=== PATIENT | male | born 1985 | race Caucasian/White ===

== ENCOUNTER 2016-10-21 16:49 | Observation (INO) | payer OTHER ==
[2016-10-21] MEDS ORDERED: ceFAZolin 1 GM in Premix Bag 1 BAG IV ONE ×2 (17:05→19:07)
--- NOTE | 2016-10-21 17:19 | EDM.PDOC ---
ED HPI GENERAL MEDICAL PROBLEM - General Chief Complaint: Lower Extremity Injury/Pain Stated Complaint: PT HURT RT LEG AT WORK Time Seen by Provider: 10/21/16 16:55 Source of Information: Reports: Patient History Limitations: Reports: No Limitations - History of Present Illness INITIAL COMMENTS - FREE TEXT/NARRATIVE: History of present illness: [] Patient was on the job and hit with a metal pipe around 3:30 this afternoon. He was seen at a medical clinic and diagnosed with an open tibia fracture. Dr. Winston called ER asking to evaluate this patient prior to her consultation. He arrives with his insurance follow up representative in a splint and x-rays on CD. Patient received a tetanus update while he was at the clinic. Received any other medications. Review of systems: As per history of present illness and below otherwise all systems reviewed and negative. Past medical history: As per history of present illness and as reviewed below otherwise noncontributory. Surgical history: As per history of present illness and as reviewed below otherwise noncontributory. Social history: No reported history of drug or alcohol abuse. Family history: As per history of present illness and as reviewed below otherwise noncontributory. Physical exam: General: Well developed, well nourished in NAD HEENT: Atraumatic, normocephalic, pupils reactive, negative for conjunctival pallor or scleral icterus, mucous membranes moist, throat clear, neck supple, nontender, trachea midline. Lungs: Clear to auscultation, breath sounds equal bilaterally, chest nontender. Heart: S1S2, regular, negative for clicks, rubs, or JVD. Abdomen: Soft, nondistended, nontender. Negative for masses or hepatosplenomegaly. Negative for costovertebral tenderness. Pelvis: Stable nontender. Genitourinary: Deferred. Rectal: Deferred. Extremities: Right lower extremity with 2 cm laceration anteromedial mid leg, negative for cords or calf pain. Neurovascular unremarkable. Neuro: Awake, alert, oriented. Cranial nerves II through XII unremarkable. Cerebellum unremarkable. Motor and sensory unremarkable throughout. Exam nonfocal. Diagnostics: []x-ray showing a right nondisplaced midshaft tibial fracture Therapeutics: []Ancef and pain meds given in the ED Impression: []open tib fracture right Plan: []Dr. Winston consulted and will be taking this patient to surgery and casting patient. Definitive disposition and diagnosis as appropriate pending reevaluation and review of above. Right Lower Leg Pain Score (Numeric/FACES): 10 - Related Data Allergies Allergy/AdvReac Type Severity Reaction Status Date / Time No Known Allergies Allergy Verified 10/21/16 17:14 Home Meds: Home Meds . [No Known Home Meds] 10/21/16 [History] Review of Systems - Review of Systems Review Of Systems: See Below (See history of present illness) ED EXAM, GENERAL - Physical Exam Exam: See Below (See history of present illness) Course - Vital Signs Last Recorded V/S: Last Vital Signs Temp 36.8 C 10/21/16 18:03 Pulse 77 10/21/16 18:03 Resp 18 10/21/16 18:03 BP 127/84 10/21/16 18:03 Pulse Ox 97 10/21/16 18:03 - Orders/Labs/Meds Orders: Active Orders 24 hr Category Date Time Status Patient Status [ADT] Stat ADT 10/21/16 18:16 Active NPO Now [Nothing per Oral Now Diet] [DIET] Diet 10/21/16 Breakfast Active Tibia Fibula Rt [CR] Stat Exams 10/21/16 17:08 Taken TYPE AND SCREEN [BBK] Stat Lab 10/21/16 18:00 Received HYDROmorphone [Dilaudid] Med 10/21/16 17:51 Active 0.5 mg IVPUSH Q1H PRN Medication Orders Hydromorphone HCl (Dilaudid) 0.5 mg IVPUSH Q1H PRN PRN Reason: Pain Last Admin: 10/21/16 18:05 Dose: 0.5 mg Labs: Laboratory Tests 10/21/16 10/21/16 10/21/16 Range/Units 17:10 17:10 17:10 WBC 9.49 (4.0-11.0) K/uL RBC 4.86 (4.50-5.90) M/uL Hgb 15.4 (13.0-17.0) g/dL Hct 42.6 (38.0-50.0) % MCV 87.7 (80.0-98.0) fL MCH 31.7 (27.0-32.0) pg MCHC 36.2 (31.0-37.0) g/dL RDW Std Deviation 39.1 (28.0-62.0) fl RDW Coeff of Maria Alejandra 12 (11.0-15.0) % Plt Count 162 (150-400) K/uL MPV 11.20 (7.40-12.00) fL Neut % (Auto) 75.9 (48.0-80.0) % Lymph % (Auto) 16.3 (16.0-40.0) % [place] % (Auto) 5.9 (0.0-15.0) % Eos % (Auto) 1.6 (0.0-7.0) % Baso % (Auto) 0.3 (0.0-1.5) % Neut # (Auto) 7.2 H (1.4-5.7) K/uL Lymph # (Auto) 1.6 (0.6-2.4) K/uL [place] # (Auto) 0.6 (0.0-0.8) K/uL Eos # (Auto) 0.2 (0.0-0.7) K/uL Baso # (Auto) 0.0 (0.0-0.1) K/uL Nucleated RBC % 0.0 /100WBC Nucleated RBCs # 0 K/uL INR 1.00 (0.86-1.11) APTT 22.7 (18.6-31.3) SEC Sodium 141 (136-146) mmol/L Potassium 4.2 (3.5-5.1) mmol/L Chloride 110 (98-110) mmol/L Carbon Dioxide 21 (21-31) mmol/L BUN 28 H (6.0-23.0) mg/dL Creatinine 1.1 (0.6-1.5) mg/dL Est Cr Clr Drug Dosing TNP Estimated GFR (MDRD) > 60.0 ml/min Glucose 92 (60-110) mg/dL Calcium 9.3 (8.8-10.8) mg/dL Total Bilirubin 0.4 (0.1-1.5) mg/dL AST 22 (5-40) IU/L ALT 24 (8-54) IU/L Alkaline Phosphatase 61 (40-150) Total Protein 7.8 (6.0-8.0) g/dL Albumin 4.7 (3.5-5.0) g/dL Globulin 3.1 (2.0-3.5) g/dL Albumin/Globulin Ratio 1.5 (1.3-2.8) Meds: Medications Generic Name Dose Route Start Last Admin Trade Name Day PRN Reason Stop Dose Admin Hydromorphone HCl 0.5 mg 10/21/16 17:51 10/21/16 18:05 Dilaudid IVPUSH 0.5 mg Q1H PRN Administration Pain Discontinued Medications Generic Name Dose Route Start Last Admin Trade Name Day PRN Reason Stop Dose Admin Cefazolin Sodium/Dextrose 1 gm 50 mls @ 100 mls/hr 10/21/16 17:05 10/21/16 17 :24 / Premix IV 10/21/16 17:34 100 mls/hr ONETIME ONE Administration Cefazolin Sodium/Dextrose Confirm 10/21/16 17:21 10/21/16 17:27 Ancef Administered 10/21/16 17:22 Not Given Dose 50 mls @ as directed .ROUTE .STK-MED ONE Ondansetron HCl 4 mg 10/21/16 17:51 10/21/16 18:05 Zofran IVPUSH 10/21/16 17:52 4 mg ONETIME ONE Administration Departure - Departure Time of Disposition: 18:02 Disposition: Admitted As Inpatient 65 Condition: good Clinical Impression: Open tibial fracture Qualifiers: Encounter type: initial encounter Tibia location: shaft Open fracture type: open type I or II Fracture morphology: transverse Fracture alignment: nondisplaced Laterality: right Qualified Code(s): S82.224B - Nondisplaced transverse fracture of shaft of right tibia, initial encounter for open fracture type I or II - Discharge Information Referrals: PCP,None [Primary Care Provider] - Forms: ED Department Discharge - My Orders Last 24 Hours: My Active Orders 10/21/16 17:08 Tibia Fibula Rt [CR] Stat 10/21/16 17:51 HYDROmorphone [Dilaudid] 0.5 mg IVPUSH Q1H PRN 10/21/16 18:00 TYPE AND SCREEN [BBK] Stat 10/21/16 18:16 Patient Status [ADT] Stat 10/21/16 Breakfast NPO Now [Nothing per Oral Now Diet] [DIET] - Assessment/Plan Last 24 Hours: My Active Orders 10/21/16 17:08 Tibia Fibula Rt [CR] Stat 10/21/16 17:51 HYDROmorphone [Dilaudid] 0.5 mg IVPUSH Q1H PRN 10/21/16 18:00 TYPE AND SCREEN [BBK] Stat 10/21/16 18:16 Patient Status [ADT] Stat 10/21/16 Breakfast NPO Now [Nothing per Oral Now Diet] [DIET]
[2016-10-21] MEDS ORDERED: HYDROmorphone 1 MG/ML Syringe IVPUSH PRN ×2 (17:51→18:51)
[2016-10-21] MEDS ORDERED: Ondansetron 4 MG/2 ML SDV IVPUSH ONE ×2 (17:51→18:48)
[2016-10-21 18:07] LABS: CHLORIDE,CL 110 mmol/L (98-110); SODIUM,NA 141 mmol/L (136-146)
--- NOTE | 2016-10-21 18:33 | PCM.HP ---
H&P History of Present Illness - General Date of Service: 10/21/16 Admit Problem/Dx: Admission Diagnosis/Problem Admission Diagnosis/Problem Fracture of shaft of tibia Source of Information: Patient History Limitations: Reports: No Limitations - History of Present Illness Onset of Symptoms: Reports: Today Symptom Onset Date: 10/21/16 Symptom Onset Time: 15:00 Duration of Symptoms: Reports: Hour(s):, Constant Location: Reports: Lower Extremity, Right Front/Back Full Body Diagram: 1 - 2cm laceration, serosanguinous drainage, no active bleeding noted Quality: Reports: Sharp, Throbbing Severity: Moderate Improves with: Reports: Immobilization, Rest Worsens with: Reports: Movement Context: Reports: Trauma (Patient states heavy pipe was dropped directly on his right tibia at ~1500. c/o immediate pain. Evaluated by Dr. Medrano. Referred to ER for definitive evaluation.) Associated Symptoms: Reports: No Other Symptoms. Denies: Chest Pain, Shortness of Breath Other HPI/Comments: No previous h/o R knee, low leg, or ankle pain. Denies paralysis, paresthesias. Right Lower Leg Pain Score (Numeric/FACES): 10 - Related Data Allergies/Adverse Reactions: Allergies Allergy/AdvReac Type Severity Reaction Status Date / Time No Known Allergies Allergy Verified 10/21/16 17:14 Home Medications: Home Meds . [No Known Home Meds] 10/21/16 [History] Past Medical History - Past Health History Medical/Surgical History: Denies Medical/Surgical History - Infectious Disease History Infectious Disease History: Reports: Chicken Pox Social & Family History - Family History Family Medical History: Noncontributory - Tobacco Use Smoking Status *Q: Never Smoker - Caffeine Use Caffeine Use: Reports: None - Alcohol Use Alcohol Use History: Yes Alcohol Use Frequency: Socially - Recreational Drug Use Recreational Drug Use: No H&P Review of Systems - Review of Systems: Review Of Systems: See Below General: Reports: No Symptoms HEENT: Reports: No Symptoms Pulmonary: Reports: No Symptoms Cardiovascular: Reports: No Symptoms Gastrointestinal: Reports: No Symptoms Genitourinary: Reports: No Symptoms Musculoskeletal: Reports: Leg Pain Skin: Reports: Wound Psychiatric: Reports: No Symptoms Neurological: Reports: No Symptoms Hematologic/Lymphatic: Reports: No Symptoms Immunologic: Reports: No Symptoms Exam - Exam Exam: See Below - Vital Signs Vital Signs: Last Vital Signs Temp 98.2 F 10/21/16 18:03 Pulse 77 10/21/16 18:03 Resp 18 10/21/16 18:03 BP 127/84 10/21/16 18:03 Pulse Ox 97 10/21/16 18:03 Weight: 101.2 kg - Exam General: Alert, Oriented, 4 HEENT: Conjunctiva Clear, Hearing Intact, Nares Patent Neck: Supple, Trachea Midline, 2 Lungs: Normal Respiratory Effort Cardiovascular: Regular Rhythm Abdomen: Soft Peripheral Pulses: 2+: Posterior Tibial (L), Posterior Tibial (R), Dorsalis Pedis (L), Dorsalis Pedis (R) Skin: Warm, Dry, Wound Skin Alteration Location (Drawings Not To Scale): 1 - 2 cm laceration Neuro Extensive - Mental Status: Alert, Oriented x3, Normal Mood/Affect, Normal Cognition Psychiatric: Alert, Normal Affect, Normal Mood Physical Exam Comments:: Exam of RLE: laceration over anterior tibia, midshaft, as previously described. No pain with gentle log rolling of hip. No TTP around knee, ankle, foot. Calf compartments soft. AT/EHL/gastroc 5/5. Sensation intact. DP 2+. - Patient Data Lab Results last 24 hrs: Laboratory Results - last 24 hr 10/21/16 10/21/16 10/21/16 Range/Units 17:10 17:10 17:10 WBC 9.49 (4.0-11.0) K/uL RBC 4.86 (4.50-5.90) M/uL Hgb 15.4 (13.0-17.0) g/dL Hct 42.6 (38.0-50.0) % MCV 87.7 (80.0-98.0) fL MCH 31.7 (27.0-32.0) pg MCHC 36.2 (31.0-37.0) g/dL RDW Std Deviation 39.1 (28.0-62.0) fl RDW Coeff of Maria Alejandra 12 (11.0-15.0) % Plt Count 162 (150-400) K/uL MPV 11.20 (7.40-12.00) fL Neut % (Auto) 75.9 (48.0-80.0) % Lymph % (Auto) 16.3 (16.0-40.0) % [place] % (Auto) 5.9 (0.0-15.0) % Eos % (Auto) 1.6 (0.0-7.0) % Baso % (Auto) 0.3 (0.0-1.5) % Neut # (Auto) 7.2 H (1.4-5.7) K/uL Lymph # (Auto) 1.6 (0.6-2.4) K/uL [place] # (Auto) 0.6 (0.0-0.8) K/uL Eos # (Auto) 0.2 (0.0-0.7) K/uL Baso # (Auto) 0.0 (0.0-0.1) K/uL Nucleated RBC % 0.0 /100WBC Nucleated RBCs # 0 K/uL INR 1.00 (0.86-1.11) APTT 22.7 (18.6-31.3) SEC Sodium 141 (136-146) mmol/L Potassium 4.2 (3.5-5.1) mmol/L Chloride 110 (98-110) mmol/L Carbon Dioxide 21 (21-31) mmol/L BUN 28 H (6.0-23.0) mg/dL Creatinine 1.1 (0.6-1.5) mg/dL Est Cr Clr Drug Dosing TNP Estimated GFR (MDRD) > 60.0 ml/min Glucose 92 (60-110) mg/dL Calcium 9.3 (8.8-10.8) mg/dL Total Bilirubin 0.4 (0.1-1.5) mg/dL AST 22 (5-40) IU/L ALT 24 (8-54) IU/L Alkaline Phosphatase 61 (40-150) Total Protein 7.8 (6.0-8.0) g/dL Albumin 4.7 (3.5-5.0) g/dL Globulin 3.1 (2.0-3.5) g/dL Albumin/Globulin Ratio 1.5 (1.3-2.8) Result Diagrams: 10/21/16 17:10 10/21/16 17:10 Imaging Impressions last 24 hrs: XR R tibia shows nondisplaced midshaft tibia fracture. *Q Meaningful Use (ADM) - VTE *Q VTE Criteria *Q: - Stroke *Q Stroke Criteria *Q: - AMI *Q AMI Criteria *Q: - Problem List (1) Open tibial fracture SNOMED Code(s): 150442206 ICD Code: S82.209B - UNSP FX SHAFT OF UNSP TIBIA, INIT FOR OPN FX TYPE I/2 Status: Acute Current Visit: Yes Qualifiers: Encounter type: initial encounter Tibia location: shaft Open fracture type: open type I or II Fracture morphology: transverse Fracture alignment: nondisplaced Laterality: right Qualified Code(s): S82.224B - Nondisplaced transverse fracture of shaft of right tibia, initial encounter for open fracture type I or II Problem List Initiated/Reviewed/Updated: Yes Orders Last 24hrs: Active Orders 24 hr Category Date Time Status Patient Status [ADT] Stat ADT 10/21/16 18:16 Active NPO Now [Nothing per Oral Now Diet] [DIET] Diet 10/21/16 Breakfast Active Tibia Fibula Rt [CR] Stat Exams 10/21/16 17:08 Taken TYPE AND SCREEN [BBK] Stat Lab 10/21/16 18:00 Received HYDROmorphone [Dilaudid] Med 10/21/16 17:51 Active 0.5 mg IVPUSH Q1H PRN Medication Orders Hydromorphone HCl (Dilaudid) 0.5 mg IVPUSH Q1H PRN PRN Reason: Pain Last Admin: 10/21/16 18:05 Dose: 0.5 mg Assessment/Plan Comment:: 1. 1 gram Ancef given in ER--will give additional 1 gram due to body weight 2. Tetanus booster updated 3. Due to open fracture, recommend ED right tibia to bone. If wound is clean, will plan on closing tonight and placing LLC with window. Risks of procedure d/ w patient which includes, but not limited to, infection, N/V injury, nonunion, malunion, loss of reduction of fracture requiring further surgical intervention , blood clots, knee/ankle stiffness, and anesthetic complications. Patient seems to accept risks and would like to proceed. Will plan on doing tonight. 4. Will admit for IV antibiotics post op x 24 H. 5. plan for PT tomorrow--KHURRAM ESPARZA
[2016-10-21] MEDS ORDERED: fentaNYL 250 MCG/5 ML SDV ONE (18:39)
[2016-10-21] MEDS ORDERED: Propofol 200 MG/20 ML SDV ONE (18:39)
[2016-10-21] MEDS ORDERED: Midazolam 1 MG/ML 2 ML SDV ONE (18:39)
[2016-10-21] MEDS ORDERED: Metoclopramide 10 MG/2 ML SDV ONE ×2 (18:40)
[2016-10-21] MEDS ORDERED: HYDROmorphone 2 MG/ML Syringe IVPUSH PRN (18:48)
[2016-10-21] MEDS ORDERED: fentaNYL 100 MCG/2 ML SDV IVPUSH PRN (18:48)
[2016-10-21] MEDS ORDERED: Meperidine PF 25 MG/ML Syringe IM ONE (18:48)
--- NOTE | 2016-10-21 18:48 | PCM.PREANE ---
Preanesthetic Assessment - Procedure Proposed Procedure: i and d of right tibia - Anesthesia/Transfusion/Family Hx Anesthesia History: No Prior Anesthesia Family History of Anesthesia Reaction: No Transfusion History: No Prior Transfusion(s) Intubation History: Unknown - Review of Systems General: No Symptoms Pulmonary: No Symptoms, Cough Cardiovascular: No Symptoms Gastrointestinal: No symptoms Neurological: No Symptoms Other: Reports: None - Physical Assessment NPO Status Date: 10/21/16 NPO Status Time: 13:00 Pulse: 88 O2 Sat by Pulse Oximetry: 97 Respiratory Rate: 18 Vital Signs: Last Vital Signs Temp 36.8 C 10/21/16 18:03 Pulse 77 10/21/16 18:03 Resp 18 10/21/16 18:03 BP 127/84 10/21/16 18:03 Pulse Ox 97 10/21/16 18:03 Height: 1.8 m Weight: 101.2 kg ASA Class: 1E Mental Status: Alert & Oriented x3 Airway Class: Mallampati = 1 Dentition: Reports: Normal Dentition Thyro-Mental Finger Breadths: 3 Mouth Opening Finger Breadths: 3 ROM/Head Extension: Full Lungs: Clear to auscultation, Normal respiratory effort Cardiovascular: Regular Rate, Regular Rhythm - Lab Values: Laboratory Last Values WBC 9.49 K/uL (4.0-11.0) 10/21/16 17:10 RBC 4.86 M/uL (4.50-5.90) 10/21/16 17:10 Hgb 15.4 g/dL (13.0-17.0) 10/21/16 17:10 Hct 42.6 % (38.0-50.0) 10/21/16 17:10 MCV 87.7 fL (80.0-98.0) 10/21/16 17:10 MCH 31.7 pg (27.0-32.0) 10/21/16 17:10 MCHC 36.2 g/dL (31.0-37.0) 10/21/16 17:10 RDW Std Deviation 39.1 fl (28.0-62.0) 10/21/16 17:10 RDW Coeff of Maria Alejandra 12 % (11.0-15.0) 10/21/16 17:10 Plt Count 162 K/uL (150-400) 10/21/16 17:10 MPV 11.20 fL (7.40-12.00) 10/21/16 17:10 Neut % (Auto) 75.9 % (48.0-80.0) 10/21/16 17:10 Lymph % (Auto) 16.3 % (16.0-40.0) 10/21/16 17:10 [place] % (Auto) 5.9 % (0.0-15.0) 10/21/16 17:10 Eos % (Auto) 1.6 % (0.0-7.0) 10/21/16 17:10 Baso % (Auto) 0.3 % (0.0-1.5) 10/21/16 17:10 Neut # (Auto) 7.2 K/uL (1.4-5.7) H 10/21/16 17:10 Lymph # (Auto) 1.6 K/uL (0.6-2.4) 10/21/16 17:10 [place] # (Auto) 0.6 K/uL (0.0-0.8) 10/21/16 17:10 Eos # (Auto) 0.2 K/uL (0.0-0.7) 10/21/16 17:10 Baso # (Auto) 0.0 K/uL (0.0-0.1) 10/21/16 17:10 Nucleated RBC % 0.0 /100WBC 10/21/16 17:10 Nucleated RBCs # 0 K/uL 10/21/16 17:10 INR 1.00 (0.86-1.11) 10/21/16 17:10 APTT 22.7 SEC (18.6-31.3) 10/21/16 17:10 Sodium 141 mmol/L (136-146) 10/21/16 17:10 Potassium 4.2 mmol/L (3.5-5.1) 10/21/16 17:10 Chloride 110 mmol/L (98-110) 10/21/16 17:10 Carbon Dioxide 21 mmol/L (21-31) 10/21/16 17:10 BUN 28 mg/dL (6.0-23.0) H 10/21/16 17:10 Creatinine 1.1 mg/dL (0.6-1.5) 10/21/16 17:10 Est Cr Clr Drug Dosing TNP 10/21/16 17:10 Estimated GFR (MDRD) > 60.0 ml/min 10/21/16 17:10 Glucose 92 mg/dL (60-110) 10/21/16 17:10 Calcium 9.3 mg/dL (8.8-10.8) 10/21/16 17:10 Total Bilirubin 0.4 mg/dL (0.1-1.5) 10/21/16 17:10 AST 22 IU/L (5-40) 10/21/16 17:10 ALT 24 IU/L (8-54) 10/21/16 17:10 Alkaline Phosphatase 61 (40-150) 10/21/16 17:10 Total Protein 7.8 g/dL (6.0-8.0) 10/21/16 17:10 Albumin 4.7 g/dL (3.5-5.0) 10/21/16 17:10 Globulin 3.1 g/dL (2.0-3.5) 10/21/16 17:10 Albumin/Globulin Ratio 1.5 (1.3-2.8) 10/21/16 17:10 - Allergies Allergies/Adverse Reactions: Allergies Allergy/AdvReac Type Severity Reaction Status Date / Time No Known Allergies Allergy Verified 10/21/16 17:14 - Blood Blood Available: No Product(s) Available: None - Anesthesia Plan Pre-Op Medication Ordered: None - Acknowledgements Anesthesia Type Planned: General Anesthesia Pt an Appropriate Candidate for the Planned Anesthesia: Yes Alternatives and Risks of Anesthesia Discussed w Pt/Guardian: Yes Pt/Guardian Understands and Agrees with Anesthesia Plan: Yes PreAnesthesia Questionnaire - Past Health History Medical/Surgical History: Denies Medical/Surgical History - Infectious Disease History Infectious Disease History: Reports: Chicken Pox - SUBSTANCE USE Smoking Status *Q: Never Smoker Recreational Drug Use History: No - HOME MEDS Home Medications: Home Meds . [No Known Home Meds] 10/21/16 [History] - CURRENT (IN HOUSE) MEDS Current Meds: Current Medications Hydromorphone HCl (Dilaudid) 0.5 mg IVPUSH Q1H PRN PRN Reason: Pain Last Admin: 10/21/16 18:05 Dose: 0.5 mg Discontinued Medications Fentanyl (Sublimaze) Confirm Administered Dose 250 mcg .ROUTE .STK-MED ONE Stop: 10/21/16 18:40 Cefazolin Sodium/Dextrose 1 gm (/ Premix) 50 mls @ 100 mls/hr IV ONETIME ONE Stop: 10/21/16 17:34 Last Admin: 10/21/16 17:24 Dose: 100 mls/hr Cefazolin Sodium/Dextrose (Ancef) Confirm Administered Dose 50 mls @ as directed .ROUTE .STK-MED ONE Stop: 10/21/16 17:22 Last Admin: 10/21/16 17:27 Dose: Not Given Metoclopramide HCl (Reglan) Confirm Administered Dose 10 mg .ROUTE .STK-MED ONE Stop: 10/21/16 18:41 Metoclopramide HCl (Reglan) Confirm Administered Dose 10 mg .ROUTE .STK-MED ONE Stop: 10/21/16 18:41 Midazolam HCl (Versed 1 Mg/Ml) Confirm Administered Dose 2 mg .ROUTE .STK-MED ONE Stop: 10/21/16 18:40 Ondansetron HCl (Zofran) 4 mg IVPUSH ONETIME ONE Stop: 10/21/16 17:52 Last Admin: 10/21/16 18:05 Dose: 4 mg Propofol (Diprivan 20 Ml) Confirm Administered Dose 200 mg .ROUTE .STK-MED ONE Stop: 10/21/16 18:40
[2016-10-21] MEDS ORDERED: Ondansetron 4 MG/2 ML SDV IV PRN (18:51)
[2016-10-21] MEDS ORDERED: Aluminum Hydroxide/Magnesium Hydroxide/Simethicone Susp 30 ML Cup PO PRN (18:51)
--- NOTE | 2016-10-21 19:00 | PCM.OPNOTE ---
- General Post-Op/Procedure Note Date of Surgery/Procedure: 10/21/16 Operative Procedure(s): 1. Closed treatment of right tibial shaft fracture without manipulation. 2. ED right open tibia fracture to bone Post-Op Diagnosis: Open right tibia shaft fracture Anesthesia Technique: General ET tube Primary Surgeon: Yulissa Winston Textile Converter: Lee Chamorro in mLs: 5 Condition: Good Free Text/Narrative:: #[id number]
[2016-10-21] MEDS ORDERED: Lidocaine 1% 50 ML MDV ONE (19:02)
[2016-10-21] MEDS ORDERED: Bupivacaine 0.25% 10 ML SDV ONE (19:02)
[2016-10-21] MEDS ORDERED: ceFAZolin 1 GM Vial ONE (19:21)
[2016-10-21] MEDS ORDERED: Ketorolac 30 MG/ML SDV ONE (19:22)
[2016-10-21] MEDS ORDERED: Ondansetron 4 MG/2 ML SDV ONE (19:22)
[2016-10-21] MEDS ORDERED: HYDROmorphone 2 MG/ML Syringe ONE (19:38)
[2016-10-21] MEDS ORDERED: fentaNYL 100 MCG/2 ML SDV ONE (19:50)
[2016-10-21] MEDS: Ketorolac 30 MG/ML SDV IVPUSH SCH (21:24)
[2016-10-21] MEDS: Lactated Ringers 1,000 ML IV SCH (21:30)
--- NOTE | 2016-10-21 21:33 | PCM.POSTAN ---
POST ANESTHESIA ASSESSMENT - MENTAL STATUS Mental Status: alert, oriented - VITAL SIGNS Pulse Rate: 88 SaO2: 98 Resp Rate: 16 Blood Pressure: 132/67 Temperature: 97.6 C - RESPIRATORY Respiratory Status: respiratory rate WNL, airway patent, O2 saturation stable - CARDIOVASCULAR CV Status: pulse rate WNL, blood pressure stable - GASTROINTESTINAL GI Status: no symptoms - POST OP HYDRATION Hydration Status: adequate & stable
[2016-10-21] MEDS: Docusate Sodium 100 MG Cap PO SCH (21:35)
[2016-10-21] MEDS: Acetaminophen/HYDROcodone 325-10 MG Tab PO PRN (21:35)
--- NOTE | 2016-10-22 00:47 | OR ---
SURGEON: Yulissa Winston MD DATE OF PROCEDURE: 10/21/2016 PREOPERATIVE DIAGNOSES: Grade 2 open right tibia shaft fracture. POSTOPERATIVE DIAGNOSIS: Grade 2 open right tibia shaft fracture. PROCEDURE: 1. Closed treatment of right tibial shaft fracture without manipulation. 2. Excisional debridement of right open tibia fracture to bone. PEELER OPERATOR: Lee Chamorro PA-C. ANESTHESIA: General. ESTIMATED BLOOD LOSS: 5 mL. TOURNIQUET TIME: 0 minutes. COMPLICATIONS: None. DVT PROPHYLAXIS: Not indicated. IMPLANTS USED: None. BRIEF HISTORY: Callum is a 31-year-old male, who injured his right lower extremity earlier today when a heavy pipe dropped on the anterior aspect of his right leg. He complained of immediate pain. He was seen initially at an occupational health facility. An x-ray taken there showed a fracture of the tibia. He was subsequently referred to our hospital for further evaluation in the emergency department. X-rays were obtained, which showed a nondisplaced fracture of the right midshaft tibia. He was found to have an open wound overlying the fracture site. At that time, I recommended surgical treatment. The risks and goals of procedure were discussed with the patient and were documented preoperatively. He agreed to proceed. DESCRIPTION OF PROCEDURE: The patient was properly identified and brought to the operating room. He was transferred from the OR cart to the operating table. He was in a supine position. General anesthesia was administered. After adequate anesthesia was obtained, the right lower extremity was prepped in standard fashion using Betadine solution. It was then sterilely draped. A time-out was performed to ensure correct site and procedure. Preoperative antibiotics were given. The surgical site had been marked preoperatively. A 15 blade scalpel used to extend the 2 cm skin laceration. The subcutaneous tissues were inspected. I was able to palpate the tibia fracture. It appeared stable. The surrounding tissues appeared clean. 9 L of normal saline were irrigated through the wound using a Pulsavac entrance guard. The edges of the wound were freshened at the completion. 2-0 Monocryl was used to close the subcutaneous tissues and the skin was closed with 3-0 nylon. Compartments were soft at the completion of the procedure. 0.5% Marcaine was injected along the incision site. Xeroform gauze was placed over the wound and a bulky dressing was applied. A long-arm cast was then applied. An x-ray obtained after placement of the cast showed no change in alignment of the fracture. It remained completely nondisplaced in an anatomic position. The cast was then bivalved. It was overwrapped with an Delroy wrap. He was awakened from his anesthetic and transferred back to the operating room cart. He was brought to recovery room in stable condition. All needle and sponge counts were correct. The patient will be admitted postoperatively for neurovascular examination and pain control along with 24 hours of IV antibiotics. We will plan on having him see physical therapy tomorrow for assistance with gait training. ALFRED / CEFERINO /[id number] MTDJanet
[2016-10-22] MEDS ORDERED: ceFAZolin 2 GM in Premix Bag 1 BAG IV SCH (02:00)
[2016-10-22] MEDS: Ketorolac 30 MG/ML SDV IVPUSH SCH ×3 (02:40→08:16)
[2016-10-22] MEDS: ceFAZolin 2 GM in Premix Bag 1 BAG IV SCH ×2 (02:58→09:14)
[2016-10-22] MEDS: Lactated Ringers 1,000 ML IV SCH (05:48)
[2016-10-22] MEDS: Acetaminophen/HYDROcodone 325-10 MG Tab PO PRN ×2 (07:11→12:07)
--- NOTE | 2016-10-22 07:17 | PCM48HPAN ---
Post Anesthesia Note - EVALUATION WITHIN 48HRS OF ANESTHETIC Vital Signs in Normal Range: Yes Patient Participated in Evaluation: Yes Respiratory Function Stable: Yes Airway Patent: Yes Cardiovascular Function Stable: Yes Hydration Status Stable: Yes Pain Control Satisfactory: Yes (controlled with meds) Nausea and Vomiting Control Satisfactory: Yes Mental Status Recovered: Yes
--- NOTE | 2016-10-22 08:14 | PCM.SURGPN ---
[id number] Surgery/Procedure: 10/21/16 POD#: 1 Functional Status: Reports: pain controlled, tolerating diet, urinating - Review of Systems General: Reports: No Symptoms Pulmonary: Reports: no symptoms, hemoptysis Gastrointestinal: Reports: No symptoms Genitourinary: Reports: no symptoms Musculoskeletal: Reports: leg pain, other (Leg swelling) Neurological: Reports: No Symptoms Psychiatric: Reports: no symptoms - Patient Data Vitals - most recent: Last Vital Signs Temp 36.3 C 10/22/16 07:44 Pulse 59 L 10/22/16 07:44 Resp 20 10/22/16 07:44 BP 107/63 10/22/16 07:44 Pulse Ox 97 10/22/16 07:44 Weight - most recent: 104.5 kg I&O - last 24 hours: Intake & Output 10/21/16 10/22/16 10/22/16 22:59 06:59 14:59 Intake Total 850 2370 Output Total 850 Balance 850 1520 Med Orders - Current: Current Medications Hydrocodone Bitart/Acetaminophen ([place] 325-10 Mg) 1 - 2 tab PO Q4H PRN PRN Reason: Pain Last Admin: 10/22/16 07:11 Dose: 2 tab Al Hydroxide/Mg Hydroxide (Mag-Al Plus) 30 ml PO Q4H PRN PRN Reason: Abdominal Pain Docusate Sodium (Colace) 100 mg PO BID [facility] Last Admin: 10/21/16 21:35 Dose: 100 mg Fentanyl (Sublimaze) 50 mcg IVPUSH Q5M PRN PRN Reason: Pain (severe 7-10) Stop: 10/22/16 18:49 Hydromorphone HCl (Dilaudid) 0.25 mg IVPUSH Q10M PRN PRN Reason: Pain (severe 7-10) Stop: 10/22/16 18:49 Hydromorphone HCl (Dilaudid) 0.5 - 1 mg IVPUSH Q3H PRN PRN Reason: Pain Last Admin: 10/22/16 00:01 Dose: 1 mg Lactated Ringer's (Ringers, Lactated) 1,000 mls @ 125 mls/hr IV ASDIRECTED [facility] Last Admin: 10/22/16 05:48 Dose: 125 mls/hr Cefazolin Sodium/Dextrose 2 gm (/ Premix) 50 mls @ 100 mls/hr IV Q8H [facility] Stop: 10/22/16 10:29 Last Admin: 10/22/16 02:58 Dose: 100 mls/hr Ketorolac Tromethamine (Toradol) 30 mg IVPUSH Q6H [facility] Last Admin: 10/22/16 02:58 Dose: Not Given Ondansetron HCl (Zofran) 4 mg IV Q8HR PRN PRN Reason: NAUSEA/VOMITING Discontinued Medications Bupivacaine HCl (Sensorcaine-Mpf 0.25%) Confirm Administered Dose 10 ml .ROUTE .STK-MED ONE Stop: 10/21/16 19:03 Cefazolin Sodium (Ancef) Confirm Administered Dose 1 gm .ROUTE .STK-MED ONE Stop: 10/21/16 19:22 Fentanyl (Sublimaze) Confirm Administered Dose 250 mcg .ROUTE .STK-MED ONE Stop: 10/21/16 18:40 Fentanyl (Sublimaze) Confirm Administered Dose 100 mcg .ROUTE .STK-MED ONE Stop: 10/21/16 19:51 Hydromorphone HCl (Dilaudid) 0.5 mg IVPUSH Q1H PRN PRN Reason: Pain Last Admin: 10/21/16 18:05 Dose: 0.5 mg Hydromorphone HCl (Dilaudid) Confirm Administered Dose 2 mg .ROUTE .STK-MED ONE Stop: 10/21/16 19:39 Cefazolin Sodium/Dextrose 1 gm (/ Premix) 50 mls @ 100 mls/hr IV ONETIME ONE Stop: 10/21/16 17:34 Last Admin: 10/21/16 17:24 Dose: 100 mls/hr Cefazolin Sodium/Dextrose (Ancef) Confirm Administered Dose 50 mls @ as directed .ROUTE .STK-MED ONE Stop: 10/21/16 17:22 Last Admin: 10/21/16 17:27 Dose: Not Given Cefazolin Sodium/Dextrose 1 gm (/ Premix) 50 mls @ 100 mls/hr IV ONETIME ONE Stop: 10/21/16 19:36 Last Admin: 10/22/16 07:29 Dose: Not Given Ketorolac Tromethamine (Toradol) 30 mg IVPUSH Q6H [facility] Last Admin: 10/22/16 02:40 Dose: 30 mg Ketorolac Tromethamine (Toradol) Confirm Administered Dose 30 mg .ROUTE .STK- MED ONE Stop: 10/21/16 19:23 Lidocaine HCl (Xylocaine 1%) Confirm Administered Dose 50 ml .ROUTE .STK-MED ONE Stop: 10/21/16 19:03 Meperidine HCl (Demerol) 50 mg IM ONETIME ONE Stop: 10/21/16 18:49 Last Admin: 10/22/16 02:57 Dose: Not Given Metoclopramide HCl (Reglan) Confirm Administered Dose 10 mg .ROUTE .STK-MED ONE Stop: 10/21/16 18:41 Metoclopramide HCl (Reglan) Confirm Administered Dose 10 mg .ROUTE .STK-MED ONE Stop: 10/21/16 18:41 Midazolam HCl (Versed 1 Mg/Ml) Confirm Administered Dose 2 mg .ROUTE .STK-MED ONE Stop: 10/21/16 18:40 Ondansetron HCl (Zofran) 4 mg IVPUSH ONETIME ONE Stop: 10/21/16 17:52 Last Admin: 10/21/16 18:05 Dose: 4 mg Ondansetron HCl (Zofran) 4 mg IVPUSH ONETIME ONE Stop: 10/21/16 18:49 Last Admin: 10/22/16 02:59 Dose: Not Given Ondansetron HCl (Zofran) Confirm Administered Dose 4 mg .ROUTE .STK-MED ONE Stop: 10/21/16 19:23 Propofol (Diprivan 20 Ml) Confirm Administered Dose 200 mg .ROUTE .STK-MED ONE Stop: 10/21/16 18:40 - Exam Wound/Incisions: other ([facility] [employer] in place.) General: alert, oriented HEENT: Pupils equal, Pupils reactive, Other Lungs: Normal respiratory effort Cardiovascular: Regular Rate Extremities: other ([facility] [employer] in place. Sensation intact. ) Neurological: no new focal deficit Psy/Mental Status: normal affect, normal mood - Problem List Review Problem List Initiated/Reviewed/Updated: Yes - My Orders Last 24 Hours: Active Orders 24 hr Category Date Time Status Antiembolic Devices [RC] PER UNIT ROUTINE Care 10/21/16 18:50 Active Neurovascular Check [RC] Q4HR Care 10/21/16 18:47 Active Notify Provider Vital Signs [RC] ASDIRECTED Care 10/21/16 18:47 Active Oxygen Therapy Adult [Oxygen Therapy] [RC] ASDIRECTED Care 10/21/16 21:40 Active Vital Signs [RC] Q4H Care 10/21/16 18:47 Active PT Evaluation and Treatment [CONS] Routine Cons 10/22/16 09:00 Active Regular Diet [DIET] Diet 10/21/16 Dinner Active Tibia Fibula Rt [CR] Routine Exams 10/21/16 20:07 Taken Acetaminophen/HYDROcodone [[place] 325-10 MG] Med 10/21/16 18:51 Active 1 - 2 tab PO Q4H PRN Alum Hydrox/Mag Hydrox/Simeth [Mag-Al Plus] Med 10/21/16 18:51 Active 30 ml PO Q4H PRN Docusate Sodium [Colace] Med 10/21/16 21:00 Active 100 mg PO BID HYDROmorphone [Dilaudid] Med 10/21/16 18:48 Active 0.25 mg IVPUSH Q10M PRN HYDROmorphone [Dilaudid] Med 10/21/16 18:51 Active 0.5 - 1 mg IVPUSH Q3H PRN Ketorolac [Toradol] Med 10/22/16 02:00 Active 30 mg IVPUSH Q6H Lactated Ringers [Ringers, Lactated] 1,000 ml Med 10/21/16 19:00 Active IV ASDIRECTED Ondansetron [Zofran] Med 10/21/16 18:51 Active 4 mg IV Q8HR PRN ceFAZolin [Ancef] 2 gm Med 10/22/16 02:00 Active Premix Bag 1 bag IV Q8H fentaNYL [Sublimaze] Med 10/21/16 18:48 Active 50 mcg IVPUSH Q5M PRN Ice Therapy [OM.PC] Routine Oth 10/21/16 18:47 Ordered Sequential Compression Device [OM.PC] Routine Oth 10/21/16 18:46 Ordered Medication Orders Hydrocodone Bitart/Acetaminophen ([place] 325-10 Mg) 1 - 2 tab PO Q4H PRN PRN Reason: Pain Last Admin: 10/22/16 07:11 Dose: 2 tab Admin: 10/21/16 21:35 Dose: 2 tab Al Hydroxide/Mg Hydroxide (Mag-Al Plus) 30 ml PO Q4H PRN PRN Reason: Abdominal Pain Docusate Sodium (Colace) 100 mg PO BID [facility] Last Admin: 10/21/16 21:35 Dose: 100 mg Fentanyl (Sublimaze) 50 mcg IVPUSH Q5M PRN PRN Reason: Pain (severe 7-10) Stop: 10/22/16 18:49 Hydromorphone HCl (Dilaudid) 0.25 mg IVPUSH Q10M PRN PRN Reason: Pain (severe 7-10) Stop: 10/22/16 18:49 Hydromorphone HCl (Dilaudid) 0.5 - 1 mg IVPUSH Q3H PRN PRN Reason: Pain Last Admin: 10/22/16 00:01 Dose: 1 mg Lactated Ringer's (Ringers, Lactated) 1,000 mls @ 125 mls/hr IV ASDIRECTED [facility] Last Admin: 10/22/16 05:48 Dose: 125 mls/hr Infusion: 10/22/16 05:30 Dose: 125 mls/hr Admin: 10/21/16 21:30 Dose: 125 mls/hr Cefazolin Sodium/Dextrose 2 gm (/ Premix) 50 mls @ 100 mls/hr IV Q8H [facility] Stop: 10/22/16 10:29 Last Admin: 10/22/16 02:58 Dose: 100 mls/hr Ketorolac Tromethamine (Toradol) 30 mg IVPUSH Q6H [facility] Last Admin: 10/22/16 02:58 Dose: Not Given Ondansetron HCl (Zofran) 4 mg IV Q8HR PRN PRN Reason: NAUSEA/VOMITING - Assessment Assessment (Free Text/Narrative):: Patient awake in bed this AM Pain controlled Tolerating diet No complaints - Plan Plan (Free Text/Narrative):: Continue pain management PT eval and treat this AM Continue antibiotic Patient D/C home this afternoon <Yulissa Winston R - Last Filed: 10/23/16 09:27> - Patient Data Vitals - most recent: Last Vital Signs Temp 97.3 F 10/22/16 11:00 Pulse 69 10/22/16 11:00 Resp 20 10/22/16 11:00 BP 111/67 10/22/16 11:00 Pulse Ox 99 10/22/16 11:00 Med Orders - Current: Current Medications Discontinued Medications Hydrocodone Bitart/Acetaminophen ([place] 325-10 Mg) 1 - 2 tab PO Q4H PRN PRN Reason: Pain Last Admin: 10/22/16 12:07 Dose: 2 tab Al Hydroxide/Mg Hydroxide (Mag-Al Plus) 30 ml PO Q4H PRN PRN Reason: Abdominal Pain Bupivacaine HCl (Sensorcaine-Mpf 0.25%) Confirm Administered Dose 10 ml .ROUTE .STK-MED ONE Stop: 10/21/16 19:03 Cefazolin Sodium (Ancef) Confirm Administered Dose 1 gm .ROUTE .STK-MED ONE Stop: 10/21/16 19:22 Docusate Sodium (Colace) 100 mg PO BID [facility] Last Admin: 10/22/16 08:18 Dose: 100 mg Fentanyl (Sublimaze) Confirm Administered Dose 250 mcg .ROUTE .STK-MED ONE Stop: 10/21/16 18:40 Fentanyl (Sublimaze) 50 mcg IVPUSH Q5M PRN PRN Reason: Pain (severe 7-10) Stop: 10/22/16 18:49 Fentanyl (Sublimaze) Confirm Administered Dose 100 mcg .ROUTE .STK-MED ONE Stop: 10/21/16 19:51 Hydromorphone HCl (Dilaudid) 0.5 mg IVPUSH Q1H PRN PRN Reason: Pain Last Admin: 10/21/16 18:05 Dose: 0.5 mg Hydromorphone HCl (Dilaudid) 0.25 mg IVPUSH Q10M PRN PRN Reason: Pain (severe 7-10) Stop: 10/22/16 18:49 Hydromorphone HCl (Dilaudid) 0.5 - 1 mg IVPUSH Q3H PRN PRN Reason: Pain Last Admin: 10/22/16 00:01 Dose: 1 mg Hydromorphone HCl (Dilaudid) Confirm Administered Dose 2 mg .ROUTE .STK-MED ONE Stop: 10/21/16 19:39 Cefazolin Sodium/Dextrose 1 gm (/ Premix) 50 mls @ 100 mls/hr IV ONETIME ONE Stop: 10/21/16 17:34 Last Admin: 10/21/16 17:24 Dose: 100 mls/hr Cefazolin Sodium/Dextrose (Ancef) Confirm Administered Dose 50 mls @ as directed .ROUTE .STK-MED ONE Stop: 10/21/16 17:22 Last Admin: 10/21/16 17:27 Dose: Not Given Lactated Ringer's (Ringers, Lactated) 1,000 mls @ 125 mls/hr IV ASDIRECTED [facility] Last Admin: 10/22/16 05:48 Dose: 125 mls/hr Cefazolin Sodium/Dextrose 1 gm (/ Premix) 50 mls @ 100 mls/hr IV ONETIME ONE Stop: 10/21/16 19:36 Last Admin: 10/22/16 07:29 Dose: Not Given Cefazolin Sodium/Dextrose 2 gm (/ Premix) 50 mls @ 100 mls/hr IV Q8H [facility] Stop: 10/22/16 10:29 Last Admin: 10/22/16 09:14 Dose: 100 mls/hr Ketorolac Tromethamine (Toradol) 30 mg IVPUSH Q6H [facility] Last Admin: 10/22/16 02:40 Dose: 30 mg Ketorolac Tromethamine (Toradol) Confirm Administered Dose 30 mg .ROUTE .STK- MED ONE Stop: 10/21/16 19:23 Ketorolac Tromethamine (Toradol) 30 mg IVPUSH Q6H [facility] Last Admin: 10/22/16 08:16 Dose: 30 mg Lidocaine HCl (Xylocaine 1%) Confirm Administered Dose 50 ml .ROUTE .STK-MED ONE Stop: 10/21/16 19:03 Meperidine HCl (Demerol) 50 mg IM ONETIME ONE Stop: 10/21/16 18:49 Last Admin: 10/22/16 02:57 Dose: Not Given Metoclopramide HCl (Reglan) Confirm Administered Dose 10 mg .ROUTE .STK-MED ONE Stop: 10/21/16 18:41 Metoclopramide HCl (Reglan) Confirm Administered Dose 10 mg .ROUTE .STK-MED ONE Stop: 10/21/16 18:41 Midazolam HCl (Versed 1 Mg/Ml) Confirm Administered Dose 2 mg .ROUTE .STK-MED ONE Stop: 10/21/16 18:40 Ondansetron HCl (Zofran) 4 mg IVPUSH ONETIME ONE Stop: 10/21/16 17:52 Last Admin: 10/21/16 18:05 Dose: 4 mg Ondansetron HCl (Zofran) 4 mg IVPUSH ONETIME ONE Stop: 10/21/16 18:49 Last Admin: 10/22/16 02:59 Dose: Not Given Ondansetron HCl (Zofran) 4 mg IV Q8HR PRN PRN Reason: NAUSEA/VOMITING Ondansetron HCl (Zofran) Confirm Administered Dose 4 mg .ROUTE .STK-MED ONE Stop: 10/21/16 19:23 Propofol (Diprivan 20 Ml) Confirm Administered Dose 200 mg .ROUTE .STK-MED ONE Stop: 10/21/16 18:40 - Problem List & Annotations (1) Open tibial fracture SNOMED Code(s): 295807525 Code(s): S82.209B - UNSP FX SHAFT OF UNSP TIBIA, INIT FOR OPN FX TYPE I/2 Status: Acute Qualifiers: Encounter type: initial encounter Tibia location: shaft Open fracture type: open type I or II Fracture morphology: transverse Fracture alignment: nondisplaced Laterality: right Qualified Code(s): S82.224B - Nondisplaced transverse fracture of shaft of right tibia, initial encounter for open fracture type I or II - Problem List Review Problem List Initiated/Reviewed/Updated: Yes - My Orders Last 24 Hours: Active Orders 24 hr Category Date Time Status Ready for Discharge [RC] PER UNIT ROUTINE Care 10/22/16 09:03 Active PT Evaluation and Treatment [CONS] Routine Cons 10/22/16 09:00 Active - Plan Plan (Free Text/Narrative):: Late entry: Patient seen and examined at 1300 yesterday. States pain was controlled with po meds. Was up with PT. LLC in good position. Able to move toes without pain. Cap refill and sensation intact. Plan to discharge later today after last dose of antibiotics. Patient agrees with plan.
[2016-10-22] MEDS: Docusate Sodium 100 MG Cap PO SCH (08:18)
--- NOTE | 2016-10-22 09:09 | PCM48HPAN ---
Post Anesthesia Note - EVALUATION WITHIN 48HRS OF ANESTHETIC Vital Signs in Normal Range: Yes Patient Participated in Evaluation: Yes Respiratory Function Stable: Yes Airway Patent: Yes Cardiovascular Function Stable: Yes Hydration Status Stable: Yes Pain Control Satisfactory: Yes Nausea and Vomiting Control Satisfactory: Yes Mental Status Recovered: Yes - COMMENTS/OBSERVATIONS Free Text/Narrative:: Denies any complaints at this time
--- NOTE | 2016-10-22 10:10 | CR ---
EXAM DATE: 10/21/16 PATIENT'S AGE: 31 Patient: MARYLU MCCLELLAND Facility: [place], [place] Site . Site : 1985 Study: XRay Extremity Right Tibfib [id number]/5/2017 5:28:22 PM Ordering Physician: Doctor Conner Final Report: INDICATION: Open injury involving the anterior medial mid tibia and fibula. TECHNIQUE: Two views right tibia and fibula COMPARISON: None FINDINGS: Bones: Transverse nondisplaced fracture involving the mid tibial shaft. Joint spaces: Unremarkable. Soft tissues: Unremarkable. IMPRESSION: Transverse nondisplaced fracture involving the mid tibial shaft. Dictated by Wally Byrnes MD @ 10/21/2016 5:35:44 PM Dictated by: Wally Byrnes MD @ 10/21/2016 17:35:52 (Electronic Signature) Report Signed by Proxy. JACQUES
--- NOTE | 2016-10-22 10:11 | CR ---
EXAM DATE: 10/21/16 PATIENT'S AGE: 31 Patient: MARYLU MCCLELLAND Facility: [place], [place] Site . Site : 1985 Study: XRay Extremity tib/fib [id number]/5/2017 8:30:22 PM Ordering Physician: Catrachito Duenas Final Report: INDICATION: Postoperative evaluation. Status post debridement and casting. TECHNIQUE: Two views of the right tibia and fibula. COMPARISON: 1719 hours. IMPRESSION: Again seen is a nondisplaced and nonangulated transverse fracture involving the middle to distal shaft of the tibia. The fibula is intact. There is soft tissue gas seen along the lateral aspect of the lower leg extend from the mid calf to the distal calf. No radiopaque foreign body is seen within the soft tissues. Cast has been placed. Dictated by Zelalem Mcmanus MD @ 10/21/2016 8:50:56 PM Dictated by: Zelalem Mcmanus MD @ 10/21/2016 20:51:03 (Electronic Signature) Report Signed by Proxy. [facility]ENTERJanet
[2016-10-22 11:25] VITALS: BP 111/67
== END 2016-10-22 14:02 | disposition home or self-care (01) ==
LOC: MW.ED 16:49 → MW.MS 18:16
PROVIDERS: ADMIT Orthopaedic Surgery; ATTEND Orthopaedic Surgery
DX: S82.291B Other fracture of shaft of right tibia, initial encounter for open fracture type I or II (principal); W22.8XXA Striking against or struck by other objects, initial encounter
CPT/HCPCS: 11044; 27752; 73590; 80053; 85025; 85610; 85730; 86850; 86900; 86901; 96365; 96375; 97161; 99285; A9270; G0378; J0690; J1170; J1885; J2250; J2405; J2765; J3010; J7120; 01480; J2704